=== PATIENT | female | born 1960 | race Caucasian/White ===

== ENCOUNTER → 2017-09-26 08:10 | Outpatient (CLI) | payer OTHER, SELFPAY ==
[2017-09-26 10:27] LABS: AST(SGOT) 23 U/L (15-37); Alanine Aminotransfer ALT/SGPT 34 U/L (13-56); Albumin, Serum 3.6 g/dL (3.2-5.0); Alkaline Phosphatase 80 U/L (45-117); Anion Gap 12 (5-15); BUN 14 mg/dL (7-18); BUN/Creat Ratio 22.5 RATIO (10-20); Calcium,Total 8.9 mg/dL (8.5-10.1); Chloride 105 mmol/L (98-107); Cholesterol 164 mg/dL (200); Creatinine, Serum 0.62 mg/dL (0.55-1.02); EST Glomerular Filtration Rate 104 mL/min (>60); Est Glom Filt Rate - Afr Amer 126 mL/min (>60); Globulin 3.5 g/dL (2.2-4.2); Glucose 141 mg/dL (74-106); High Density Lipoprotein 52 mg/dL; Potassium 3.8 mmol/L (3.5-5.1); Protein, Total 7.1 g/dL (6.4-8.2); Sodium Level 141 mmol/L (136-145); Triglycerides 177 mg/dL; Very Low Density Lipoprotein 35 mg/dL (5-40)
[2017-09-26 10:57] LABS: Microalbumin,Random Urine 16.7 mg/L (NO RANGE EST.); Microalbumin:Creatinine Ratio 21.3 mg/g CRE (<30 mg/g CRE)
== END ==
PROVIDERS: Family Provider Family Medicine; PCP Family Medicine; Visit Provider Family Medicine
DX: E11.9 Type 2 diabetes mellitus without complications (principal); E78.2 Mixed hyperlipidemia
CPT/HCPCS: 36415; 80053; 80061; 82043; 82570; 83036

== ENCOUNTER → 2018-05-07 10:35 | Outpatient (CLI) | payer OTHER, SELFPAY ==
--- NOTE | 2018-05-07 10:37 | BI_ITS ---
MAMMOGRAPHY - BILATERAL SCREENING REASON FOR EXAM: Female, 58 years old. Routine annual screening examination. PERTINENT HISTORY: Non-contributory. TECHNIQUE: Digital bilateral breast haritha (3D mammographic acquisition) in the CC and MLO projections. 2-D mediolateral oblique (MLO) and craniocaudad (CC) views of both breasts were obtained. CAD: Full Field Digital Mammography with Computer Added Detection was performed. COMPARISON: Comparison is made with prior study dated May 05, 2017 and April 16, 2016. FINDINGS: Breast Composition: The breasts are almost entirely fatty. There is a 4.2 mm x 4.3 mm well-defined nodule in the anterior slightly upper lateral portion of the right breast. Correlation with ultrasound is recommended. Stable benign-appearing bilateral axillary lymph nodes. No other significant abnormalities are identified. BI/SCREENING MAMM (CAD), BILAT IMPRESSION: 4.2 mm x 4.3 mm well-defined nodule in the anterior slightly upper lateral portion of the right breast. Correlation with ultrasound is recommended. ASSESSMENT CATEGORY: BIRADS Category 0: Incomplete. Need additional imaging evaluation. A letter regarding these results will be sent to the patient by the facility within 30 days. Approximately 10% of breast cancers are not detected by mammography. A normal mammogram should not delay biopsy of a clinically suspicious abnormality. [id number] Electronically Signed: Destin Marquez MD at 14:37 EDT Tel [phone], Service support ,
== END ==
PROVIDERS: Family Provider Family Medicine; PCP Family Medicine; Visit Provider Family Medicine
DX: Z12.31 Encounter for screening mammogram for malignant neoplasm of breast (principal)
CPT/HCPCS: 77063; 77067

== ENCOUNTER → 2018-05-11 13:56 | Outpatient (CLI) | payer OTHER, SELFPAY ==
--- NOTE | 2018-05-11 13:58 | US_ITS ---
STUDY: ULTRASOUND BREAST - RIGHT REASON FOR EXAM: Female, 58 years old. Abnormal screening mammogram. TECHNIQUE: Axial and longitudinal images of the RIGHT breast were performed with a high resolution ultrasound transducer. COMPARISON: Comparison is made with prior mammogram dated May 07, 2018. FINDINGS: RIGHT Breast: The mammographic abnormality corresponds to a 2 mm x 2 mm x 2 mm cyst at the 9:00 position breast at 1 cm from the nipple. US/Breast Limited Unilateral IMPRESSION: The mammographic abnormality corresponds to a 2 mm x 2 mm x 2 mm cyst. ASSESSMENT CATEGORY: BIRADS Category 2: Benign. A letter regarding these results will be sent to the patient by the facility within 30 days. Electronically Signed: Destin Marquez MD at 14:58 EDT Tel [phone], Service support ,
== END ==
PROVIDERS: Family Provider Family Medicine; PCP Family Medicine; Visit Provider Family Medicine
DX: R92.8 Other abnormal and inconclusive findings on diagnostic imaging of breast (principal)
CPT/HCPCS: 76642

== ENCOUNTER → 2018-06-05 09:40 | Outpatient (CLI) | payer OTHER, SELFPAY ==
--- NOTE | 2018-06-05 | COLBX_PTH ---
PATIENT: GURVINDER MARTINEZ LOC: [facility] U#:[id number] AGE/SX: 65/F ROOM: RE06/05/[address]: Dr. Moody Abrams MD : 1960 BED: DIS: SPEC #: [id number] RECD: 06/05/18 15:34 STATUS: TERRY GHISLAINE #: [id number] REGINA: 06/05/18 00:[address]: Moody Abrams DEPT: SURGICAL PATHOLOGY RECD BY: Lebron Zaldivar ENTERED: 06/08/18 13:35 SP TYPE: COLON BX OTHR DR: Dr. Maximino Aguilera, [facility] Tissues: Transverse colon Procedures: Surgery Specimen Level IV HEADER OPERATION: Colonoscopy with biopsies PRE-OP DIAGNOSIS: Screening / polyp TISSUE SUBMITTED: Transverse colon, rule out adenoma MICROSCOPIC DIAGNOSIS Transverse colon polyp, biopsy: Fragments of tubular adenoma. SJ:james 06/09/18 MICROSCOPIC DESCRIPTION Slides are reviewed. GROSS DESCRIPTION Received in fixative is one container labeled with the patient's name and designated transverse colon. The specimen consists of multiple irregular fragments of light reyes soft tissue that in aggregate measure 0.4 x 0.4 x 0.1 cm. The specimen is totally submitted in one cassette. / SJ:james 06/08/18 TC:1 CPT: 38833
== END ==
PROVIDERS: Family Provider Family Medicine; PCP Family Medicine; Referring Provider Internal Medicine Gastroenterology; Visit Provider Internal Medicine Gastroenterology
DX: Z12.11 Encounter for screening for malignant neoplasm of colon (principal); D12.3 Benign neoplasm of transverse colon
CPT/HCPCS: 88305

== ENCOUNTER → 2019-06-24 09:03 | Outpatient (CLI) | payer OTHER, SELFPAY ==
[2019-06-24 09:46] LABS: Hematocrit 42.4 % (37-47); Hemoglobin 13.8 g/dL (12.0-15.0); Mean Corp Hgb Conc 32.5 g/dL (32-36); Mean Corpuscular Hgb 28.9 pg (27.0-32.0); Mean Corpuscular Volume 88.7 fL (81-99); Mean Platelet Vol. 11.1 fl (6.2-12.0); Platelet Count 203 K/mm3 (150-450); RBC Distribution Width CV 13.1 % (11.6-14.6); RBC Distribution Width SD 42.6 fl (35.1-43.9); Red Blood Count 4.78 M/mm3 (4.2-5.4); White Blood Count 6.8 K/mm3 (4.4-11.0)
[2019-06-24 10:09] LABS: ALB/GLOB Ratio 1.1 RATIO (0.9-2.4); AST(SGOT) 24 U/L (15-37); Alanine Aminotransfer ALT/SGPT 32 U/L (13-56); Albumin, Serum 3.6 g/dL (3.2-5.0); Alkaline Phosphatase 90 U/L (45-117); Anion Gap 6 (5-15); BUN 8 mg/dL (7-18); Calcium,Total 9.1 mg/dL (8.5-10.1); Chloride 107 mmol/L (98-107); Cholesterol 178 mg/dL (200); Creatinine, Serum 0.66 mg/dL (0.55-1.02); EST Glomerular Filtration Rate 96 mL/min (>60); Est Glom Filt Rate - Afr Amer 116 mL/min (>60); Globulin 3.4 g/dL (2.2-4.2); Glucose 150 mg/dL (74-106); High Density Lipoprotein 51 mg/dL; Potassium 4.3 mmol/L (3.5-5.1); Sodium Level 141 mmol/L (136-145); Thyroid Stim Hormone (TSH) 1.44 uIU/mL (0.358-3.74); Triglycerides 157 mg/dL; Very Low Density Lipoprotein 31 mg/dL (5-40)
[2019-06-24 10:10] LABS: Hemoglobin A1c 7.7 % (4.2-6.3)
== END ==
PROVIDERS: Family Provider Student in an Organized Health Care Education/Training Program; PCP Student in an Organized Health Care Education/Training Program; Referring Provider Student in an Organized Health Care Education/Training Program; Visit Provider Student in an Organized Health Care Education/Training Program
DX: E11.65 Type 2 diabetes mellitus with hyperglycemia (principal)
CPT/HCPCS: 36415; 80053; 80061; 83036; 84443; 85027

== ENCOUNTER → 2020-02-15 08:20 | Outpatient (CLI) | payer OTHER, SELFPAY ==
[2020-02-15 12:04] LABS: Hemoglobin 13.7 g/dL (12.0-15.0); Mean Corp Hgb Conc 31.9 g/dL (32-36); Mean Corpuscular Hgb 28.9 pg (27.0-32.0); Mean Corpuscular Volume 90.7 fL (81-99); Mean Platelet Vol. 10.9 fl (6.2-12.0); Platelet Count 205 K/mm3 (150-450); RBC Distribution Width CV 12.8 % (11.6-14.6); RBC Distribution Width SD 42.5 fl (35.1-43.9); Red Blood Count 4.74 M/mm3 (4.2-5.4); White Blood Count 6.6 K/mm3 (4.4-11.0)
[2020-02-15 12:18] LABS: AST(SGOT) 21 U/L (15-37); Alanine Aminotransfer ALT/SGPT 30 U/L (13-56); Albumin, Serum 3.4 g/dL (3.2-5.0); Alkaline Phosphatase 88 U/L (45-117); Anion Gap 6 (5-15); BUN 13 mg/dL (7-18); BUN/Creat Ratio 20.5 RATIO (10-20); Calcium,Total 8.9 mg/dL (8.5-10.1); Chloride 109 mmol/L (98-107); Cholesterol 152 mg/dL (200); Creatinine, Serum 0.63 mg/dL (0.55-1.02); EST Glomerular Filtration Rate 101 mL/min (>60); Est Glom Filt Rate - Afr Amer 123 mL/min (>60); Globulin 3.5 g/dL (2.2-4.2); Glucose 144 mg/dL (74-106); High Density Lipoprotein 47 mg/dL; Potassium 4.1 mmol/L (3.5-5.1); Protein, Total 6.9 g/dL (6.4-8.2); Sodium Level 142 mmol/L (136-145); Triglycerides 185 mg/dL; Very Low Density Lipoprotein 37 mg/dL (5-40)
[2020-02-15 12:24] LABS: Hemoglobin A1c 7.3 % (3.8-5.6); Microalbumin,Random Urine 5.7 mg/L (NO RANGE EST.)
== END ==
PROVIDERS: PCP Student in an Organized Health Care Education/Training Program; Referring Provider Student in an Organized Health Care Education/Training Program; Visit Provider Student in an Organized Health Care Education/Training Program
DX: E11.65 Type 2 diabetes mellitus with hyperglycemia (principal); E78.2 Mixed hyperlipidemia
CPT/HCPCS: 36415; 80053; 80061; 82043; 83036; 85027

== ENCOUNTER → 2020-07-05 09:51 | Outpatient (CLI) | payer OTHER, SELFPAY ==
--- NOTE | 2020-07-05 09:53 | BI_ITS ---
MAMMOGRAPHY - BILATERAL SCREENING REASON FOR EXAM: Female, 60 years old. Routine annual screening examination. PERTINENT HISTORY: Non-contributory. TECHNIQUE: Digital bilateral breast kuldip (3D mammographic acquisition) in the CC and MLO projections. 2-D mediolateral oblique (MLO) and craniocaudad (CC) views of both breasts were obtained. CAD: Full Field Digital Mammography with Computer Added Detection was performed. COMPARISON: Comparison is made with prior study dated 05/07/2018 and 05/05/2017 FINDINGS: Breast Composition: The breasts are almost entirely fatty. There are no dominant masses or suspicious calcifications. The previously seen nodule in the anterior slightly lateral superior aspect of the right breast has increased in size. It presently measures 7.8 mm x 7 mm. A repeat sonogram is recommended. No other significant abnormalities are identified. BI/SCREEN MAMM (CAD) W/KULDIP BILAT IMPRESSION: Slight increase in size of the previously seen nodule in the lateral superior aspect of the right breast as described. Correlation with ultrasound is recommended. ASSESSMENT CATEGORY: BIRADS Category 0: Incomplete. Need additional imaging evaluation. A letter regarding these results will be sent to the patient by the facility within 30 days. Approximately 10% of breast cancers are not detected by mammography. A normal mammogram should not delay biopsy of a clinically suspicious abnormality. [id number] Electronically Signed: Destin Marquez, at 10:43 EST , Service support ,
== END ==
PROVIDERS: PCP Student in an Organized Health Care Education/Training Program; Referring Provider Student in an Organized Health Care Education/Training Program; Visit Provider Student in an Organized Health Care Education/Training Program
DX: Z12.31 Encounter for screening mammogram for malignant neoplasm of breast (principal)
CPT/HCPCS: 77063; 77067

== ENCOUNTER → 2020-07-11 09:58 | Outpatient (CLI) | payer OTHER, SELFPAY ==
--- NOTE | 2020-07-11 10:00 | US_ITS ---
STUDY: ULTRASOUND BREAST - RIGHT REASON FOR EXAM: Female, 60 years old. TECHNIQUE: Axial and longitudinal images of the RIGHT breast were performed with a high resolution ultrasound transducer. # OF IMAGES: 50 COMPARISON: Previous mammogram obtained on 07/05/2020, previous breast ultrasound obtained on 05/11/2018 FINDINGS: RIGHT Breast: There is a lesion in the superior lateral quadrant. The lesion measures 0.44 cm in size. This has doubled in size when compared with the previous ultrasound. Clock notation: 9: o''clock position. Distance from nipple: 3 cm. Posterior Enhancement: No Posterior Shadowing: Yes Margins: Indistinct and irregular Echogenicity: Hypoechoic with some internal shadowing US/Breast Limited Unilateral IMPRESSION: A hypoechoic irregular nodule is noted in the superior lateral aspect of the right breast. This is viewed with concern and is suspicious for malignancy an ultrasound directed breast biopsy is recommended for further evaluation. ASSESSMENT CATEGORY: BIRADS Category 4: Suspicious - Biopsy Should Be Considered. A letter regarding these results will be sent to the patient by the facility within 30 days. Electronically Signed: Mingo Harry, at 16:55 EST Tel , Service support ,
== END ==
PROVIDERS: PCP Student in an Organized Health Care Education/Training Program; Referring Provider Student in an Organized Health Care Education/Training Program; Visit Provider Student in an Organized Health Care Education/Training Program
DX: R92.8 Other abnormal and inconclusive findings on diagnostic imaging of breast (principal)
CPT/HCPCS: 76642

== ENCOUNTER → 2020-07-19 12:05 | Outpatient (CLI) | payer OTHER, SELFPAY ==
--- NOTE | 2020-07-19 | IMM_PTH ---
PATIENT: GURVINDER MARTINEZ LOC: [facility] U#:[id number] AGE/SX: 65/F ROOM: RE07/19/[address]: Dr. Eugenio Puckett MD : 1960 BED: DIS: SPEC #: [id number] RECD: 07/20/20 13:16 STATUS: TERRY REQ #: [id number] REGINA: 07/19/20 00:[address]: Eugenio Puckett DEPT: IMMUNOHISTOCHEMISTRY RECD BY: Sheila Bhatia ENTERED: 07/20/20 13:17 SP TYPE: IMMUNO OTHR DR: Dr. Delvin Sanchez DO Tissues: Right breast, NOS Procedures: CALPONIN-1 (add) CK5-6 (add) CK8 (add) E-CAD (add) HER2 GABRIELA (add) KI-67 (add) P53 (add) SC (add) P40 (add) ER (initial) PHYSICIAN & INSTITUTION [place] [address] SPECIMEN INFORMATION: Tissue Source: Right breast Clinical Info: Abnormal right mammogram Specimen Number: [id number] CPT code: 32536, 46176 x6, 21344 x3 METHODOLOGY: Deparaffinized sections of prefer/formalin-fixed tissue or PAP/DQ stained slides are incubated with monoclonal/polyclonal antibodies/oligonucleotide probes. Localization is made via biotin free immunoperoxidase method. Appropriate controls are performed and reacted as expected. Results on target cell population are indicated in the following table: RESULTS: ANTIBODY / CLONE RESULT E-Cad (ECH-6) positive CK8 (84fgdoY57) positive Calponin-1 (XE312K) negative CK5-6 (D5 & 1684) negative P40 (BC28) negative P53 (DO-7) negative Ki-67 (30-9) positive, low MORPHOMETRIC ANALYSIS ER (clone 6F11) >95%, strong intensity SC (clone 16/1E2) >95%, strong intensity Her-2Neu (clone CB11) 0 The prognostic test for HER2 is performed on formalin-fixed paraffin embedded tissue. A 3+ (positive) staining pattern is defined as intense, homogeneous, complete, circumferential membranous staining in >10% of contiguous tumor cells. A similar weak (2+) staining pattern is interpreted as equivocal. SRIAKNTH follow-up testing is recommended for all equivocal cases. Positivity/negativity for ER/SC is reported if > or < 1% of the tumor cells are immuno- reactive, respectively. The ASCO/CAP criteria is used for scoring. Reference: Journal of Clinical Oncology, 2013; 31:1335-8322 & 2010; 16:2070-1762. Duration of fixation: 7.5 Hrs; Sample Adequate: Yes. These assays have not been validated on decalcified tissues. Results should be interpreted with caution given the likelihood of false negativity on decalcified specimens. These tests were developed and their performance characteristics determined by [facility]. They may not have been cleared or approved by the U.S. Food and Drug Administration. The FDA has determined that such clearance or approval is not necessary. The above immunohistochemical/dualISH markers are ordered and reviewed by the Pathologist. INTERPRETATION: Right breast, ultrasound-guided biopsy: Invasive ductal carcinoma, nuclear grade 1. Positive for estrogen receptors (favorable prognostic indicator). Positive for progesterone receptors (favorable prognostic indicator). Negative for overexpression of KTA2caa. SJ:james 07/21/20
--- NOTE | 2020-07-19 09:10 | BRBX_PTH ---
PATIENT: GURVINDER MARTINEZ LOC: [facility] U#:[id number] AGE/SX: 65/F ROOM: RE07/19/[address]: Dr. Eugenio Puckett MD : 1960 BED: DIS: SPEC #: [id number] RECD: 07/19/20 11:09 STATUS: TERRY GHISLAINE #: [id number] REGINA: 07/19/20 09:[address]: Eugenio Puckett DEPT: SURGICAL PATHOLOGY RECD BY: Emily Roberts ENTERED: 07/19/20 12:44 SP TYPE: BREAST BX OTHR DR: Dr. Delvin Sanchez, DO Tissues: Breast, NOS Procedures: Surgery Specimen Level IV HEADER OPERATION: Ultrasound-guided right breast biopsy PRE-OP DIAGNOSIS: Abnormal right mammogram TISSUE SUBMITTED: Right breast tissue FIXATION TIME: 7.5 hours MICROSCOPIC DIAGNOSIS Right breast, ultrasound-guided core biopsy: Invasive ductal carcinoma, nuclear grade 1 (0.5 cm in greatest length). See comment. ADELINE:james 07/20/20 COMMENT Immunohistochemistry ([id number]) supports the above diagnosis. ER/MA/Dbl5fvi studies are being performed on sections of tumor and the results from this study will be reported separately ([id number]). Case has been reviewed in consultation with Dr. Jimenez who concurs with the above diagnosis. IDC:AM MICROSCOPIC DESCRIPTION Slides are reviewed. GROSS DESCRIPTION Received in fixative is one container labeled with the patient's name and designated right breast tissue. The specimen consists of three cores of light reyes-yellow soft tissue that in aggregate measure 1.7 x 0.5 x 0.2 cm. The specimen is totally submitted in one cassette. / AM:james 07/19/20 TC:0 CPT: 35480
[2020-07-19 09:38] VITALS: BMI 32.7
== END ==
PROVIDERS: PCP Student in an Organized Health Care Education/Training Program; Referring Provider Surgery; Visit Provider Surgery
DX: R92.8 Other abnormal and inconclusive findings on diagnostic imaging of breast (principal)
CPT/HCPCS: 88305; 88341; 88342

== ENCOUNTER 2020-07-28 10:26 | Day surgery (SDC) | payer OTHER, SELFPAY ==
[2020-07-28] VITALS (7 sets, daily range): BP systolic 113–152; BP diastolic 58–92; PULSE 61–85; RESP 16–18; TEMP 36.2–36.6; O2SAT 95–100; BMI 31.8
--- NOTE | 2020-07-28 | LYMN_PTH ---
PATIENT: GURVINDER MARTINEZ LOC: [facility] U#:[id number] AGE/SX: 60/F ROOM: RE07/28/[address]: Dr. Eugenio Puckett MD : 1960 BED: DIS: 07/28/2020 SPEC #: [id number] RECD: 07/28/20 14:36 STATUS: TERRY REQ #: [id number] REGINA: 07/28/20 00:[address]: Eugenio Puckett DEPT: SURGICAL PATHOLOGY RECD BY: Sheila Bhatia ENTERED: 07/28/20 15:24 SP TYPE: LYMPH NODE OTHR DR: Dr. Delvin Sanchez, DO Tissues: A - LYMPH NODE BIOPSY B - Right breast, NOS Procedures: Frozen Section (charge) Frozen Section Add'l ([facility]) Surgery Specimen Level V HEADER OPERATION: Stereotactic wire localization lumpectomy with sentinel lymph node biopsy PRE-OP DIAGNOSIS: Malignant neoplasm of upper outer quadrant right breast, ER positive TISSUE SUBMITTED: A - [place] lymph node, FS at 1431, B - Right breast tissue, suture hernandez lateral, long and short superior FROZEN SECTION DIAGNOSIS A. [place] lymph nodes, biopsy: Three out of three lymph nodes, negative for metastatic carcinoma. SJ:james 07/28/20 MICROSCOPIC DIAGNOSIS A. Right axillary sentinel lymph nodes, biopsy: Three out of three lymph nodes, negative for carcinoma. See comment. B. Right breast, lumpectomy: Invasive ductal carcinoma. See cancer checklist below. AM:james 08/02/20 COMMENT A. Immunohistochemistry ([id number]) supports the above diagnosis. INVASIVE BREAST CANCER SUMMARY (specimen B) Procedure: Excision with wire guidance Specimen: Type: Partial breast Size: 7 x 6 x 2 cm Laterality: Right Invasive Tumor: Size: 6 x 6 x 6 mm Focality: Single focus Histologic type: Invasive ductal carcinoma. Histologic grade (Yusuf grade): Glandular/tubular differentiation score: 3 Nuclear pleomorphism score: 2 Mitotic count score: 1 Overall grade: 2 (score of 6) Lymphvascular invasion: Not identified Ductal Carcinoma In Situ: Not identified Lobular Carcinoma In Situ: Not identified Tumor extension: Skin: Not applicable Nipple: Not applicable Skeletal muscle: Not present Invasive Carcinoma Margin: Distance from closest margin: 0.5 cm from closest (superior) margin In Situ Carcinoma Margin: Distance from closest margin: 0.5 cm from closest (superior) margin Lymph Nodes: Number of sentinel lymph nodes examined: 3 Total number of lymph nodes examined: 3 No evidence of macrometastases, micrometastases or isolated tumor cells. See specimen A Microcalcifications: Not present Treatment Effect: Unknown Additional Pathologic Findings: Consistent with previous biopsy. Ancillary Studies: Previously performed on same tumor ([id number] / [id number]) ER: positive (>95%, strong intensity) FL: positive (>95%, strong intensity) Oiu5ohr: negative (0) Clinical History: Abnormal mammogram PATHOLOGIC STAGE: T1b N0 Mx The above summary is in compliance with [employer] (CAP) Cancer Protocol Checklist and [place] Joint Committee on Cancer (AJCC) Staging Manual, 8th Ed. Case has been reviewed in consultation with Dr. Moser who concurs with the above diagnosis. IDC:SJ MICROSCOPIC DESCRIPTION Slides are reviewed. GROSS DESCRIPTION A - Received fresh for frozen section diagnosis labeled with the patient's name is a specimen designated sentinel lymph node. The specimen consists of a piece of adipose tissue containing nodules consistent with lymph nodes measuring 4.5 x 3 x 1 cm. Three lymph nodes are identified, the largest measuring 3?cm in greatest dimension. The lymph nodes are submitted in entirety for frozen section diagnosis as follows: 1 - one lymph node, 2 & 3 - one bisected lymph node, 4 & 5 - one bisected lymph node. / ADELINE:james 07/28/20 B - Received fresh for OR consultation labeled with the patient's name is a specimen designated right breast. The specimen consists of an oriented fragment of reyes-yellow fibrofatty tissue measuring 7 x 6 x 2 cm and contains a guidewire. The specimen weighs 36.5 gm. The specimen is differentially inked as follows: anterior - yellow, posterior - black, superior - blue, inferior - green, medial - red and lateral - orange. Serial sections reveal a blood filled biopsy cavity measuring 2 x 1.5 x 1 cm and located 0.5 cm from the closest (superior) margin of excision. The proximity of the biopsy cavity to the closest margin is conveyed to the surgeon intraoperatively. No distinct mass lesions are identified. Principal Software Engineer sections are submitted in 12 cassettes as follows: 1 & 2 - inked perpendicular margins, 3-7 - biopsy cavity, 8 & 9 - Principal Software Engineer sections of uninvolved breast parenchyma adjacent to biopsy cavity, 1012?- Principal Software Engineer sections of uninvolved breast parenchyma away from the lesion. / AM:james 07/31/20 TC:0 CPT: 60590 x2, 86463, 11821 x4 ADDENDUM ADDENDUM ADDENDUM ADDENDUM ADDENDUM ADDENDUM ADDENDUM ADDENDUM 09/04/2020 10:16 ADDENDUM 09/04/2020 10:16 ADDENDUM 09/04/2020 10:16 ADDENDUM 09/04/2020 10:16 ADDENDUM 09/04/2020 10:16 An order for Oncotype testing was received from Dr. Fernandes. This necessitated case review, block and slide selection by pathologist at [facility]. Breast Cancer Recurrence Score = 12 Results of the complete Oncotype testing (Rounds report) are viewable in EMR under: Reports - Pathology - Lab Pathology Report, Scanned.
--- NOTE | 2020-07-28 | IMM_PTH ---
PATIENT: GURVINDER MARTINEZ LOC: [facility] [place] U#:[id number] AGE/SX: 60/F ROOM: RE07/28/[address]: Dr. Eugenio Puckett MD : 1960 BED: DIS: 07/28/2020 SPEC #: [id number] RECD: 08/02/20 13:15 STATUS: TERRY RENirav #: [id number] REGINA: 07/28/20 00:[address]: Eugenio Puckett DEPT: IMMUNOHISTOCHEMISTRY RECD BY: Sheila Bhatia ENTERED: 08/02/20 13:17 SP TYPE: IMMUNO OTHR DR: Dr. Delvin Sanchez, DO Tissues: A - Axillary lymph node, NOS Procedures: CK7 (add) Pankeratin (add) CK7 (initial) PHYSICIAN & INSTITUTION [place] [address] SPECIMEN INFORMATION: Tissue Source: A - [place] lymph nodes, biopsy Clinical Info: Malignant neoplasm of upper outer quadrant right breast, ER positive Specimen Number: [id number] A2, A3, A5 CPT code: 63967, 74290 x5 METHODOLOGY: Deparaffinized sections of prefer/formalin-fixed tissue or PAP/DQ stained slides are incubated with monoclonal/polyclonal antibodies/oligonucleotide probes. Localization is made via biotin free immunoperoxidase method. Appropriate controls are performed and reacted as expected. Results on target cell population are indicated in the following table: RESULTS: ANTIBODY / CLONE RESULT Block A2 CK7 (OV-TL12/30) negative AE1-3 (AE1/AE3/PCK26) negative Block A3 CK7 (OV-TL12/30) negative AE1-3 (AE1/AE3/PCK26) negative Block A5 CK7 (OV-TL12/30) negative AE1-3 (AE1/AE3/PCK26) negative These tests were developed and their performance characteristics determined by [facility]. They may not have been cleared or approved by the U.S. Food and Drug Administration. The FDA has determined that such clearance or approval is not necessary. The above immunohistochemical/dualISH markers are ordered and reviewed by the Pathologist. INTERPRETATION: A. [place] lymph nodes, biopsy: Three out of three lymph nodes negative for carcinoma. AM:james 08/03/20
--- NOTE | 2020-07-28 01:15 | HP_ITS ---
Intake Intake Visit Reasons: Review PATH Chief Complaint: right breast mass Freight Representative Required: No Is patient in pain?: No Allergies codeine Adverse Reaction (Mild, Verified 07/24/20 10:02) Rash Medications aspirin 81 mg tablet,delayed release 81 mg PO DAILY 07/19/20 [History Confirmed 07/24/20] betamethasone dipropionate 0.05 % topical ointment g TOPICAL 07/19/20 [History Confirmed 07/24/20] dapagliflozin 10 mg tablet 10 mg PO DAILY 07/19/20 [History Confirmed 07/24/20] exenatide microspheres 2 mg/0.85 mL subcutaneous auto-injector 2 mg SC Q7D 07/19/20 [History Confirmed 07/24/20] [id number] tablet tab PO 07/19/20 [History Confirmed 07/24/20] losartan 100 mg tablet 100 mg PO DAILY 07/19/20 [History Confirmed 07/24/20] pioglitazone 15 mg tablet tab PO 07/19/20 [History Confirmed 07/24/20] pyridoxine (vitamin B6) 25 mg tablet 25 mg PO DAILY 07/19/20 [History Confirmed 07/24/20] simvastatin 40 mg tablet tab PO 07/19/20 [History Confirmed 07/24/20] PFSH Medical History Breast cancer (Acute) Diabetes (Acute) High cholesterol (Acute) Surgical History S/P appendectomy (Acute) S/P breast biopsy, right (Acute) S/P foot surgery (Acute) Family History Father Heart disease Diabetes Mother Diabetes Sister Kidney disease Social History (Updated 07/24/20 @ 10:[address] Eugenio Puckett MD) Smoking Status: Never smoker alcohol intake: never HPI HPI HPI: GURVINDER MARTINEZ, is a 60 F who presents to the office today for HPI HPI Surgical H&P: Yes HPI: GURVINDER MARTINEZ, is a 60 F who presents to the office today for Invasive ductal carcinoma of the right breast. The patient had a core biopsy in the office last week which showed invasive ductal carcinoma ER/IL positive. The patient has had no issues since her biopsy. ROS General General: No weight change or fatigue Cardio Cardiovascular: No murmur, pacemaker, heart disease, atrial fibrillation, high blood pressure, heart attack, heart stent, palpitations, shortness of breat with exertion or chest pain Psych Psychiatric: No depression or anxiety Resp Respiratory: No shortness of breath, No sleep apnea, No cough, No COPD, No asthma, No emphysema, No wheezing Gastro Gastrointestinal: No abdominal pain, No nausea or vomiting, No diarrhea, No constipation, No blood in stool, No acid reflux, No hemorrhoids, No ulcers, No gallbladder problem, No black,tarry stools Wil Hematologic: No blood thinners Exam Const General: cooperative Orientation: alert, oriented x3 Resp Effort & Inspection: normal respiratory effort Auscultation: clear to auscultation bilaterally Cardio Rate: regular rate Rhythm: regular rhythm Heart Sounds: no murmurs GI Inspection: non-distended Palpation: soft, nontender Assessment & Plan Problems 1. Malignant neoplasm of upper-outer quadrant of right breast in female, estrogen receptor positive C50.411; Z17.0 Plan The patient has infective ductal carcinoma of the right breast. I discussed surgical treatment with her. I discussed partial mastectomy with sentinel lymph node biopsy and wire localization with radiotracer and blue dye injection. I discussed the procedure in detail as well as the risks of bleeding, infection, injury to nerve or other organ, hematoma or seroma formation. The patient understands the risks and is when to proceed. I also discussed postoperative treatment with her including radiation therapy and possible chemotherapy with hormonal therapy. Patient understands all the risks and is willing to proceed with surgery. Eugenio Puckett MD Pager: [facility] [address] [place] [address], [address] [place] [address] Office: Coding Level of Care Code Off vis,est,level 3 Diagnoses Malignant neoplasm of upper-outer quadrant of right breast in female, estrogen receptor positive C50.411; Z17.0 ??Breast location: upper outer quadrant of breast ??Estrogen receptor status: positive ??Patient sex: female I have seen and reexamined the patient and there are no changes.
--- NOTE | 2020-07-28 11:00 | NM_ITS ---
PROCEDURE: NUCLEAR MEDICINE Injection Thompson Node - RIGHT breast(s). REASON FOR EXAM: Female, 60 years old. Right breast cancer. TECHNIQUE: Thompson node localization using radionuclide methods of the RIGHT breast(s) was performed following subcutaneous administration of 1.1 mCi of of sulfur colloid Tc-99m. FINDINGS: 1.1 mCi of technetium labeled sulfur colloid was injected subcutaneously in 4 equal aliquots in the periareolar region. NM/Lymph Node Injection Only IMPRESSION: Subcutaneous injection of 1.1 mCi of technetium labeled sulfur colloid in the periareolar region. Electronically Signed: Destin Marquez, at 11:23 EST , Service support ,
[2020-07-28] MEDS: Lactated Ringers 1,000 ML 100 ML IV ×3 (11:01→17:04)
[2020-07-28 11:06] LABS: Bedside Glucose 132 mg/dL (70-110)
--- NOTE | 2020-07-28 12:00 | BI_ITS ---
SURGICAL BREAST SPECIMEN RADIOGRAPH CLINICAL: Document presence of tissue clip marker in biopsy specimen. FINDINGS: Specimen shows presence of tissue clip marker. Electronically Signed: Destin Marquez, at 15:05 EST , Service support , BI/Breast Biopsy Specimen
[2020-07-28] MEDS: Cefazolin 2 GM in 0.9% Normal Saline 100 ML IV (13:43)
[2020-07-28] MEDS: Isosulfan Blue 1% 5 ML Vial (14:00)
[2020-07-28] MEDS: 0.9% Normal Saline (Pres. free 10 ML Vial (14:00)
[2020-07-28] MEDS: Bupiv/Epi 0.25% 30 ML Vial (14:30)
--- NOTE | 2020-07-28 15:45 | OP.PCM_ITS ---
Problem List (1) Breast cancer, right Status: Acute Qualifiers: Breast location: upper outer quadrant of breast Estrogen receptor status: positive Patient sex: female Qualified Code(s): C50.411 - Malignant neoplasm of upper-outer quadrant of right female breast; Z17.0 - Estrogen receptor positive status [ER+] Report of Operation Date of Procedure: 07/28/20 Pre-Operative Diagnosis: Right breast cancer Post-Operative Diagnosis: Same Surgery/Procedure Performed:: 1. Stereotactic guided wire localization. 2. Right sentinel lymph node biopsy with injection of blue dye. 3. Right partial mastectomy Specimen's removed: 1. [place] lymph node biopsy. 2. Right breast specimen Description of Procedure: Patient was brought to the stereotactic room and placed in the stereotactic table. Mammographic images were obtained. The clip was localized. Stereotactic images were obtained and the clip was localized with computer and the coordinates were placed into the computer. The skin was prepped and draped in usual sterile fashion and anesthetized with local anesthetic. The guidewire was placed into the breast and the wire was deployed and the needle was removed. The wire was clipped and a mammogram was obtained. Patient was then taken the operating room and general anesthesia was induced. 5 cc of Lymphazurin mixed with 5 cc of saline were injected under the right nipple and the breast was massaged for 5 minutes. The right axilla and breast were prepped and draped in usual sterile fashion. An incision was marked in the axilla numbed with anesthesia. A skin incision was made with a scalpel and deepened using electrocautery to the axillary fascia which was then incised. The axilla was dissected and a blue lymph node was identified and dissected free. The lymph node was checked and a 10-second count was over thousand. Th ere were no further blue or radio active lymph nodes in the right axilla. The right axilla was inspected and there was good hemostasis. It was packed with a wet gauze. Next the right breast skin incision was marked and local anesthetic was injected. A skin incision was made with a scalpel and flaps were raised on either side using electrocautery. The wire was delivered into the incision. Using electrocautery the mass was dissected free and marked with marking sutures and sent for mammogram. Mammogram of the breast specimen showed the entire wire with clip. The axillary lymph nodes were negative on frozen section. Next the breast cavity was irrigated and suctioned dry and hemostasis was obtained using electrocautery. The axillary fascia was closed with interrupted 3-0 Vicryl sutures and a running 4-0 Monocryl suture. The breast cavity was closed with interrupted 3-0 Vicryl sutures as well as a running 4-0 Monocryl suture. Glue was applied to both incisions and the patient was then awoken and taken to PACU in stable condition. - Admit VTE Documentation VTE Mechan Device Prophylaxis: SCD's
--- NOTE | 2020-07-28 15:58 | PCM.DC.BS ---
Discharge Diet: No Restrictions Discharge Activity: May Not Drive - for 2-3 days or while taking narcotic pain meds. May shower in (days): 1 Lifting Restrictions: 10 pounds for 1 week. Call your doctor if your incision/area has: Continuous Slow Oozing, Sudden Increased Bleeding, Increased Pain/ Swelling, Increased Redness, Foul Smelling Discharge, Swelling at the incision site Call your doctor if you observe: Fever of 101 or Higher Suture Line Care: Avoid Pulling/Pushing, Avoid Pinching/Bending Cleanse incision/area with: Soap & Water Additional Dressing/Incision Instructions:: Remove bulky dressing tomorrow. Allergies/Adverse Reactions: Allergies codeine Adverse Reaction (Mild, Verified 07/28/20 10:41) Nausea Medications to take at Discharge aspirin 81 mg tablet,delayed release 81 mg PO DAILY 07/19/20 betamethasone dipropionate 0.05 % topical ointment 1 dose TOPICAL PRN PRN 07/19/20 dapagliflozin 10 mg tablet 10 mg PO DAILY 07/19/20 exenatide microspheres 2 mg/0.85 mL subcutaneous auto-injector 2 mg SC Q7D 07/19/20 losartan 100 mg tablet 100 mg PO DAILY 07/19/20 pioglitazone 15 mg tablet 15 tab PO DAILY 07/19/20 pyridoxine (vitamin B6) 25 mg tablet 25 mg PO DAILY 07/19/20 simvastatin 40 mg tablet 40 tab PO QHS 07/19/20 Ascorbic Acid [Vitamin C] 500 mg PO DAILY 07/25/20 Cyanocobalamin [Vitamin B12] 1,000 mcg PO DAILY@0800 07/25/20 Metformin HCl [Metformin HCl ER] 1,000 mg PO 1700 07/25/20 Mv-Min/Iron/Folic/Calcium/Vitk [Women's Daily Formula Tablet] 1 ea PO DAILY 07/25/20 Oxycodone HCl/Acetaminophen [Percocet 5-325 mg Tablet] 1 - 2 tab PO Q6H PRN PRN 5 Days #20 tablet 07/28/20 The following prescriptions were given: Oxycodone HCl/Acetaminophen [Percocet 5-325 mg Tablet] 1 - 2 tab PO Q6H PRN PRN 5 Days #20 tablet PRN Reason: Pain Score 4-10/10 Transmission Status: Sent to [facility] Primary Care Physician: Delvin Sanchez DO [Primary Care Provider] - Please Follow Up With: Eugenio Puckett MD When: Please call to schedule 2 week follow up appointment. [phone]
== END 2020-07-28 17:45 | disposition home or self-care (01) ==
LOC: SDC 10:26 → AC 10:27
PROVIDERS: PCP Student in an Organized Health Care Education/Training Program; Referring Provider Surgery; Visit Provider Surgery
PROC: (CPT 19301; principal; 2020-07-28 13:15)
DX: C50.411 Malignant neoplasm of upper-outer quadrant of right female breast (principal); Z17.0 Estrogen receptor positive status [ER+]; Z20.828 Contact with and (suspected) exposure to other viral communicable diseases; E11.9 Type 2 diabetes mellitus without complications; E78.00 Pure hypercholesterolemia, unspecified; Z78.0 Asymptomatic menopausal state; Z79.82 Long term (current) use of aspirin; Z79.899 Other long term (current) drug therapy
CPT/HCPCS: 00400; 19283; 19301; 38525; 38792; 19281; 76098; 82962; 87426; 88305; 88307; 88331; 88332; 88341; 88342; A9541; C9803; J7120; J2405; J3490; Q9968

== ENCOUNTER → 2020-08-23 08:56 | Outpatient (CLI) | payer OTHER, SELFPAY ==
[2020-08-17 09:12] VITALS: BMI 32.5
--- NOTE | 2020-08-23 09:04 | BD_ITS ---
STUDY: DUAL ENERGY X-RAY ABSORPTIOMETRY / DXA REASON FOR EXAM: Female, 60 years old. 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 COMPARISON: None. FINDINGS: Lumbar Spine (L1-L4): g/cm2 (1.323) / T-score (1.2) / Z-score (2.6) Findings are suggestive of normal bone density with a low fracture risk. Left Femur Total: g/cm2 (0.787) / T-score (-1.8) / Z-score (-0.7) Left Femoral Neck: g/cm2 (0.828) / T-score (-1.5) / Z-score (-0.2) Right Femur Total: g/cm2 (1.130) / T-score (1.0) / Z-score (2.0) Right Femoral Neck: g/cm2 (1.058) / T-score (0.1) / Z-score (1.5) BD/Dexa Bone Density Study IMPRESSION: The patient is considered osteopenic as outlined below according to World Bub[employer] Organization (WHO) criteria with a moderate fracture risk. Reference Information: The T-score is the number of standard deviations above or below the standard which is normal for young adults at their peak bone mineral density. The World Health Organization (WHO) interprets the T-scores as follows: Above -1 Normal bone density Between -1 and -2.5 Osteopenia Equal to / or below -2.5 Osteoporosis As a practical clinical guideline, osteopenia may be graded as follows: Mild -1 through -1.5 Moderate -1.6 through -2.0 Severe -2.1 through -2.4 The Z-score is the number of standard deviations above or below age-matched controls. A Z-score of less than -1.5 would be considered abnormal. References: 1. NIH Osteoporosis and Related Bone Diseases www osteo.org 2. International Society for Clinical Densitometry www iscd.org 3. National Osteoporosis Foundation www nof.org Electronically Signed: Destin Marquez, at 8:25 EST , Service support ,
--- NOTE | 2020-08-23 09:22 | RAD_ITS ---
STUDY: X-RAY CHEST REASON FOR EXAM: Female, 60 years old. Breast cancer TECHNIQUE: PA and lateral views of the chest. COMPARISON: None. FINDINGS: Status post right axillary lymph node dissection. There is hyperinflation of the lungs consistent with chronic obstructive lung disease (COPD). There is no demonstrated pleural abnormality. Normal size heart. Normal mediastinum and yocasta. Normal visualized pulmonary arteries. Normal visualized aortic arch and descending thoracic aorta. Normal visualized thoracic spine. Normal visualized ribs, clavicles, and shoulders. There is no demonstrated abnormality of the visualized soft tissue structures of the upper abdomen. RAD/Chest PA and Lateral IMPRESSION: Emphysema without pneumonia or atelectasis. Electronically Signed: Rodri Wu MD at 16:59 EST Tel , Service support ,
== END ==
PROVIDERS: PCP Student in an Organized Health Care Education/Training Program; Referring Provider Internal Medicine Medical Oncology; Visit Provider Internal Medicine Medical Oncology
DX: C50.911 Malignant neoplasm of unspecified site of right female breast (principal); Z13.820 Encounter for screening for osteoporosis
CPT/HCPCS: 71046; 77080

== ENCOUNTER → 2020-11-15 09:55 | Outpatient (CLI) | payer OTHER, SELFPAY ==
[2020-08-31 10:03] VITALS: BMI 32.5
[2020-10-19 15:05] VITALS: BMI 32.8
[2020-11-15 12:11] LABS: Hematocrit 44.1 % (37-47); Hemoglobin 14.3 g/dL (12.0-15.0); Mean Corp Hgb Conc 32.4 g/dL (32-36); Mean Corpuscular Hgb 29.2 pg (27.0-32.0); Mean Platelet Vol. 10.8 fl (6.2-12.0); Platelet Count 216 K/mm3 (150-450); RBC Distribution Width CV 12.7 % (11.6-14.6); RBC Distribution Width SD 41.9 fl (35.1-43.9); White Blood Count 5.6 K/mm3 (4.4-11.0)
[2020-11-15 12:31] LABS: AST(SGOT) 20 U/L (15-37); Alanine Aminotransfer ALT/SGPT 26 U/L (13-56); Albumin, Serum 3.4 g/dL (3.2-5.0); Alkaline Phosphatase 80 U/L (45-117); Anion Gap 10 (5-15); BUN 14 mg/dL (7-18); BUN/Creat Ratio 22.5 RATIO (10-20); Chloride 104 mmol/L (98-107); Cholesterol 159 mg/dL (200); Creatinine, Serum 0.62 mg/dL (0.55-1.02); EST Glomerular Filtration Rate 103 mL/min (>60); Est Glom Filt Rate - Afr Amer 125 mL/min (>60); Globulin 3.5 g/dL (2.2-4.2); Glucose 138 mg/dL (74-106); High Density Lipoprotein 49 mg/dL; Potassium 3.8 mmol/L (3.5-5.1); Protein, Total 6.9 g/dL (6.4-8.2); Sodium Level 142 mmol/L (136-145); Thyroid Stim Hormone (TSH) 1.26 uIU/mL (0.358-3.74); Triglycerides 200 mg/dL; Very Low Density Lipoprotein 40 mg/dL (5-40)
[2020-11-15 12:33] LABS: Hemoglobin A1c 6.4 % (3.8-5.6)
[2020-11-15 13:01] LABS: Hepatitis C Antibody Non-Reactive (Nonreactive)
== END ==
PROVIDERS: PCP Student in an Organized Health Care Education/Training Program; Referring Provider Student in an Organized Health Care Education/Training Program; Visit Provider Student in an Organized Health Care Education/Training Program
DX: E11.9 Type 2 diabetes mellitus without complications (principal); Z11.59 Encounter for screening for other viral diseases
CPT/HCPCS: 36415; 80053; 80061; 83036; 84443; 85027; 86803

== ENCOUNTER → 2021-05-07 09:06 | Outpatient (CLI) | payer OTHER, SELFPAY ==
[2020-08-31 10:03] VITALS: BMI 32.5
[2021-05-07 10:00] LABS: Hematocrit 42.3 % (37-47); Hemoglobin 13.7 g/dL (12.0-15.0); Mean Corp Hgb Conc 32.4 g/dL (32-36); Mean Corpuscular Hgb 29.5 pg (27.0-32.0); Mean Platelet Vol. 10.8 fl (6.2-12.0); Platelet Count 198 K/mm3 (150-450); RBC Distribution Width CV 12.2 % (11.6-14.6); RBC Distribution Width SD 40.6 fl (35.1-43.9); Red Blood Count 4.65 M/mm3 (4.2-5.4)
[2021-05-07 10:32] LABS: ALB/GLOB Ratio 0.8 RATIO (0.9-2.4); AST(SGOT) 28 U/L (15-37); Alanine Aminotransfer ALT/SGPT 28 U/L (13-56); Albumin, Serum 3.1 g/dL (3.2-5.0); Alkaline Phosphatase 63 U/L (45-117); Anion Gap 8 (5-15); BUN 14 mg/dL (7-18); BUN/Creat Ratio 25.1 RATIO (10-20); Chloride 105 mmol/L (98-107); Cholesterol 163 mg/dL (200); Creatinine, Serum 0.56 mg/dL (0.55-1.02); EST Glomerular Filtration Rate 117 mL/min (>60); Est Glom Filt Rate - Afr Amer 141 mL/min (>60); Globulin 3.8 g/dL (2.2-4.2); Glucose 148 mg/dL (74-106); High Density Lipoprotein 46 mg/dL; Protein, Total 6.9 g/dL (6.4-8.2); Sodium Level 140 mmol/L (136-145); Triglycerides 296 mg/dL; Very Low Density Lipoprotein 59 mg/dL (5-40)
[2021-05-07 10:37] LABS: Hemoglobin A1c 6.8 % (3.8-5.6)
== END ==
PROVIDERS: PCP Student in an Organized Health Care Education/Training Program; Referring Provider Student in an Organized Health Care Education/Training Program; Visit Provider Student in an Organized Health Care Education/Training Program
DX: E11.9 Type 2 diabetes mellitus without complications (principal)
CPT/HCPCS: 36415; 80053; 80061; 83036; 85027

== ENCOUNTER → 2021-05-29 | Outpatient (CLI) | payer OTHER, SELFPAY ==
[2020-08-31 10:03] VITALS: BMI 32.5
== END | disposition home or self-care (01) ==
LOC: LABSPEC 11:13
PROVIDERS: PCP Student in an Organized Health Care Education/Training Program; Referring Provider Physician Assistant; Visit Provider Physician Assistant
DX: U07.1 COVID-19 (principal)
CPT/HCPCS: 87635; U0005; U0003

== ENCOUNTER → 2021-07-06 09:04 | Outpatient (CLI) | payer OTHER, SELFPAY ==
[2020-08-31 10:03] VITALS: BMI 32.5
[2020-12-27 13:47] VITALS: BMI 32.4
--- NOTE | 2021-07-06 09:04 | BI_ITS ---
MAMMOGRAPHY - BILATERAL DIAGNOSTIC REASON FOR EXAM: Female, 61 years old. Prior right lumpectomy with radiation. PERTINENT HISTORY: Personal history of breast cancer. TECHNIQUE: Digital bilateral breast haritha (3D mammographic acquisition) in the CC and MLO projections. 2-D mediolateral oblique (MLO) and craniocaudad (CC) views of both breasts were obtained. CAD: Full Field Digital Mammography with Computer Added Detection was performed. COMPARISON: Comparison is made with prior examination of 07/05/2020. FINDINGS: Breast Composition: The breasts are almost entirely fatty. There are no dominant masses or suspicious calcifications. Since prior examination, the patient underwent a lumpectomy in the upper lateral aspect of the right breast. Postoperative changes are seen at the lumpectomy site but overall line skin thickening. Surgical clips are seen in the right axillary region. No other significant abnormalities are identified. BI/DIAG MAMM W/CAD, BILAT IMPRESSION: Status post right lumpectomy with postoperative changes.. One year follow-up recommended. (A) ASSESSMENT CATEGORY: BIRADS Category 2: Benign. A letter regarding these results will be sent to the patient by the facility within 30 days. Approximately 10% of breast cancers are not detected by mammography. A normal mammogram should not delay biopsy of a clinically suspicious abnormality. Electronically Signed: Destin Marquez MD at 11:03 EST , Service support ,
== END ==
PROVIDERS: PCP Student in an Organized Health Care Education/Training Program; Referring Provider Student in an Organized Health Care Education/Training Program; Visit Provider Student in an Organized Health Care Education/Training Program
DX: C50.411 Malignant neoplasm of upper-outer quadrant of right female breast (principal); Z12.31 Encounter for screening mammogram for malignant neoplasm of breast; Z17.0 Estrogen receptor positive status [ER+]
CPT/HCPCS: 77062; 77066; G0279

== ENCOUNTER → 2022-05-07 | Outpatient (CLI) | payer OTHER, SELFPAY ==
[2020-08-31 10:03] VITALS: BMI 32.5
[2022-05-07 09:59] LABS: Hematocrit 41.9 % (37-47); Hemoglobin 13.6 g/dL (12.0-15.0); Mean Corp Hgb Conc 32.5 g/dL (32-36); Mean Corpuscular Hgb 29.8 pg (27.0-32.0); Mean Corpuscular Volume 91.7 fL (81-99); Mean Platelet Vol. 10.6 fl (6.2-12.0); Platelet Count 198 K/mm3 (150-450); RBC Distribution Width CV 12.6 % (11.6-14.6); RBC Distribution Width SD 42.2 fl (35.1-43.9); Red Blood Count 4.57 M/mm3 (4.2-5.4); White Blood Count 6.3 K/mm3 (4.4-11.0)
[2022-05-07 10:15] LABS: Hemoglobin A1c 6.9 % (3.8-5.6)
[2022-05-07 10:24] LABS: Microalbumin,Random Urine 9.4 mg/L (NO RANGE EST.)
[2022-05-07 10:47] LABS: ALB/GLOB Ratio 0.9 RATIO (0.9-2.4); AST(SGOT) 23 U/L (15-37); Alanine Aminotransfer ALT/SGPT 28 U/L (13-56); Albumin, Serum 3.2 g/dL (3.2-5.0); Alkaline Phosphatase 66 U/L (45-117); Anion Gap 10 (5-15); BUN 15 mg/dL (7-18); BUN/Creat Ratio 23.4 RATIO (10-20); Calcium,Total 9.1 mg/dL (8.5-10.1); Chloride 109 mmol/L (98-107); Cholesterol 136 mg/dL (200); Creatinine, Serum 0.64 mg/dL (0.55-1.02); EST Glomerular Filtration Rate 99 mL/min (>60); Est Glom Filt Rate - Afr Amer 120 mL/min (>60); Globulin 3.5 g/dL (2.2-4.2); Glucose 126 mg/dL (74-106); High Density Lipoprotein 46 mg/dL; Potassium 3.8 mmol/L (3.5-5.1); Protein, Total 6.7 g/dL (6.4-8.2); Sodium Level 143 mmol/L (136-145); Thyroid Stim Hormone (TSH) 2.17 uIU/mL (0.358-3.74); Triglycerides 203 mg/dL; Very Low Density Lipoprotein 41 mg/dL (5-40)
== END | disposition home or self-care (01) ==
LOC: MTLAB 07:52
PROVIDERS: PCP Student in an Organized Health Care Education/Training Program; Referring Provider Student in an Organized Health Care Education/Training Program; Visit Provider Student in an Organized Health Care Education/Training Program
DX: E11.9 Type 2 diabetes mellitus without complications (principal)
CPT/HCPCS: 36415; 80053; 80061; 82043; 83036; 84443; 85027

== ENCOUNTER 2022-07-08 09:54 | Outpatient (CLI) | payer OTHER, SELFPAY ==
[2020-08-31 10:03] VITALS: BMI 32.5
--- NOTE | 2022-07-08 09:56 | BI_ITS ---
MAMMOGRAPHY - BILATERAL SCREENING REASON FOR EXAM: Female, 62 years old. Routine annual screening examination. PERTINENT HISTORY: Personal history of breast cancer status post lumpectomy and radiation. Maternal aunt with breast cancer. TECHNIQUE: Digital bilateral breast kuldip (3D mammographic acquisition) in the CC and MLO projections. 2-D mediolateral oblique (MLO) and craniocaudad (CC) views of both breasts were obtained. CAD: Full Field Digital Mammography with Computer Added Detection was performed. COMPARISON: Bilateral mammogram from 07/06/2021, 07/05/2020. Right breast diagnostic mammogram from 07/28/2020. Right breast ultrasound from 07/11/2020. FINDINGS: Breast Composition: There are scattered areas of fibroglandular density. There are no dominant masses or suspicious calcifications. There are stable right breast lumpectomy postoperative changes and postoperative scar. There are stable surgical clips in the right axilla. No other significant abnormalities are identified. There has been no significant change since the prior study. BI/SCRN MAMM (CAD)W/KULDIP BILAT IMPRESSION: Stable bilateral screening mammogram. Yearly follow-up mammogram recommended. (A) ASSESSMENT CATEGORY: BIRADS Category 2: Benign. A letter regarding these results will be sent to the patient by the facility within 30 days. Approximately 10% of breast cancers are not detected by mammography. A normal mammogram should not delay biopsy of a clinically suspicious abnormality. Electronically Signed: Alfonzo Carlos, at 8:38 EST ,
== END 2022-07-08 23:59 | disposition home or self-care (01) ==
LOC: OPBI 09:55
PROVIDERS: PCP Student in an Organized Health Care Education/Training Program; Visit Provider Student in an Organized Health Care Education/Training Program
DX: Z12.31 Encounter for screening mammogram for malignant neoplasm of breast (principal); C50.411 Malignant neoplasm of upper-outer quadrant of right female breast; Z17.0 Estrogen receptor positive status [ER+]
CPT/HCPCS: 77063; 77067

== ENCOUNTER → 2023-07-03 | Outpatient (CLI) | payer MEDICARE, SELFPAY ==
[2020-08-31 10:03] VITALS: BMI 32.5
[2023-07-03 09:57] LABS: Absolute Lymphocyte Count 1.84 X10^3/uL (0.83-4.51); Absolute Neutrophil Count 3.9 X10^3/uL (2.0-7.7); Basophil# 0.02 X10^3/uL; Basophil% 0.3 % (0-1); Eosinophil# 0.65 X10^3/uL; Eosinophils% 9.5 % (0-5); Hematocrit 41.6 % (37-47); Hemoglobin 13.2 g/dL (12.0-15.0); Lymphocyte # 1.84 X10^3/ul (0.83-4.51); Mean Corp Hgb Conc 31.7 g/dL (32-36); Mean Corpuscular Hgb 29.3 pg (27.0-32.0); Mean Corpuscular Volume 92.2 fL (81-99); Mean Platelet Vol. 11.1 fl (6.2-12.0); Monocyte# 0.37 X10^3/uL; Monocyte% 5.4 % (0-10); NRBC Flagged by Analyzer 0 % (0-5); Neutrophil # 3.92 X10^3/uL (2.7-7.7); Neutrophil % 57.7 % (47-70); Platelet Count 205 K/mm3 (150-450); RBC Distribution Width CV 12.3 % (11.6-14.6); RBC Distribution Width SD 41.5 fl (35.1-43.9); Red Blood Count 4.51 M/mm3 (4.2-5.4); White Blood Count 6.8 K/mm3 (4.4-11.0)
[2023-07-03 10:11] LABS: Microalbumin,Random Urine 21.5 mg/L (NO RANGE EST.); Microalbumin:Creatinine Ratio 13.2 mg/g CRE (<30 mg/g CRE)
[2023-07-03 10:11] LABS: ALB/GLOB Ratio 0.9 RATIO (0.9-2.4); AST(SGOT) 29 U/L (15-37); Alanine Aminotransfer ALT/SGPT 35 U/L (13-56); Albumin, Serum 3.1 g/dL (3.2-5.0); Alkaline Phosphatase 59 U/L (45-117); Anion Gap 9 (5-15); BUN 14 mg/dL (7-18); BUN/Creat Ratio 21.4 RATIO (10-20); Calcium,Total 8.6 mg/dL (8.5-10.1); Chloride 107 mmol/L (98-107); Cholesterol 122 mg/dL (200); Creatinine, Serum 0.66 mg/dL (0.55-1.02); EST Glomerular Filtration Rate 96 mL/min (>60); Est Glom Filt Rate - Afr Amer 117 mL/min (>60); Globulin 3.6 g/dL (2.2-4.2); Glucose 164 mg/dL (74-106); High Density Lipoprotein 45 mg/dL; LDH 156 U/L (84-246); Potassium 3.9 mmol/L (3.5-5.1); Protein, Total 6.7 g/dL (6.4-8.2); Sodium Level 142 mmol/L (136-145); Thyroid Stim Hormone (TSH) 1.36 uIU/mL (0.358-3.74); Triglycerides 219 mg/dL; Very Low Density Lipoprotein 44 mg/dL (5-40)
[2023-07-03 16:14] LABS: Xtra Tube EP Lab EXTRA TUBE
== END | disposition home or self-care (01) ==
LOC: MTLAB 08:03
PROVIDERS: Internal Medicine Medical Oncology; PCP Student in an Organized Health Care Education/Training Program; Referring Provider Student in an Organized Health Care Education/Training Program; Visit Provider Student in an Organized Health Care Education/Training Program
DX: E11.59 Type 2 diabetes mellitus with other circulatory complications (principal); Z13.6 Encounter for screening for cardiovascular disorders
CPT/HCPCS: 36415; 80053; 80061; 82043; 82570; 83615; 84443; 85025

== ENCOUNTER → 2023-07-14 | Outpatient (CLI) | payer MEDICARE, SELFPAY ==
[2020-08-31 10:03] VITALS: BMI 32.5
--- NOTE | 2023-07-14 09:28 | BI_ITS ---
MAMMOGRAPHY - BILATERAL SCREENING REASON FOR EXAM: Female, 63 years old. Routine annual screening examination. PERTINENT HISTORY: Personal history of breast cancer. Prior right lumpectomy. Aunt with breast cancer. TECHNIQUE: Digital bilateral breast kuldip (3D mammographic acquisition) in the CC and MLO projections. 2-D mediolateral oblique (MLO) and craniocaudad (CC) views of both breasts were obtained. CAD: Full Field Digital Mammography with Computer Added Detection was performed. COMPARISON: Comparison is made with prior study July 08, 2022 and July 06, 2021. FINDINGS: Breast Composition: There are scattered areas of fibroglandular density. There are no dominant masses or suspicious calcifications. Once again, the patient is status post lumpectomy in the inferior lateral aspect of the right breast. Surgical clips are seen in the right axilla. No other significant abnormalities are identified. There has been no significant change since the prior study. BI/SCRN MAMM (CAD)W/KULDIP BILAT IMPRESSION: Stable bilateral screening mammogram. Yearly follow-up mammogram recommended. (A) ASSESSMENT CATEGORY: BIRADS Category 2: Benign. A letter regarding these results will be sent to the patient by the facility within 30 days. Approximately 10% of breast cancers are not detected by mammography. A normal mammogram should not delay biopsy of a clinically suspicious abnormality. [id number] Electronically Signed: Destin Marquez MD at 12:25 EST ,
== END | disposition home or self-care (01) ==
LOC: OPBI 09:27
PROVIDERS: PCP Student in an Organized Health Care Education/Training Program; Referring Provider Student in an Organized Health Care Education/Training Program; Visit Provider Student in an Organized Health Care Education/Training Program
DX: Z12.31 Encounter for screening mammogram for malignant neoplasm of breast (principal); C50.911 Malignant neoplasm of unspecified site of right female breast; Z80.3 Family history of malignant neoplasm of breast
CPT/HCPCS: 77063; 77067

== ENCOUNTER → 2024-02-23 | Outpatient (CLI) | payer MEDICARE, SELFPAY ==
[2020-08-31 10:03] VITALS: BMI 32.5
[2024-02-26 23:06] LABS: HPV Reflexed? NOT INDICATED
== END | disposition home or self-care (01) ==
LOC: LABSPEC 13:21
PROVIDERS: PCP Student in an Organized Health Care Education/Training Program; Referring Provider Obstetrics & Gynecology; Visit Provider Obstetrics & Gynecology
DX: Z12.4 Encounter for screening for malignant neoplasm of cervix (principal); Z79.810 Long term (current) use of selective estrogen receptor modulators (SERMs)
CPT/HCPCS: 88175; G0145

== ENCOUNTER → 2024-07-16 | Outpatient (CLI) | payer MEDICARE, SELFPAY ==
[2020-08-31 10:03] VITALS: BMI 32.5
--- NOTE | 2024-07-16 11:54 | BI_ITS ---
MAMMOGRAPHY - BILATERAL SCREENING REASON FOR EXAM: Female, 64 years old. Routine annual screening examination. PERTINENT HISTORY: Personal history of breast cancer. Prior right lumpectomy. Prior right ultrasound-guided breast biopsy. Aunt with breast cancer. TECHNIQUE: Digital bilateral breast kuldip (3D mammographic acquisition) in the CC and MLO projections. 2-D mediolateral oblique (MLO) and craniocaudad (CC) views of both breasts were obtained. CAD: Full Field Digital Mammography with Computer Added Detection was performed. COMPARISON: Comparison is made with prior study July 14, 2023 and July 08, 2022. FINDINGS: Breast Composition: There are scattered areas of fibroglandular density. There are no dominant masses or suspicious calcifications. Once again, the patient is status post lumpectomy in the inferior lateral aspect of the right breast. Postsurgical changes are seen. Surgical clips are seen in the right axilla. No other significant abnormalities are identified. There has been no significant change since the prior study. BI/SCRN MAMM (CAD)W/KULDIP BILAT IMPRESSION: Stable bilateral screening mammogram. Yearly follow-up mammogram recommended. (A) ASSESSMENT CATEGORY: BIRADS Category 2: Benign. A letter regarding these results will be sent to the patient by the facility within 30 days. Approximately 10% of breast cancers are not detected by mammography. A normal mammogram should not delay biopsy of a clinically suspicious abnormality. [id number] Electronically Signed: Destin Marquez MD at 9:07 EST ,
== END | disposition home or self-care (01) ==
LOC: OPBI 11:53
PROVIDERS: PCP Student in an Organized Health Care Education/Training Program; Referring Provider Nurse Practitioner Family; Visit Provider Nurse Practitioner Family
DX: Z12.31 Encounter for screening mammogram for malignant neoplasm of breast (principal); Z85.3 Personal history of malignant neoplasm of breast; Z80.3 Family history of malignant neoplasm of breast
CPT/HCPCS: 77063; 77067

== ENCOUNTER → 2024-07-20 | Outpatient (CLI) | payer MEDICARE, SELFPAY ==
[2020-08-31 10:03] VITALS: BMI 32.5
[2024-07-20 10:22] LABS: Cholesterol 148 mg/dL (200); High Density Lipoprotein 48 mg/dL; Triglycerides 281 mg/dL; Very Low Density Lipoprotein 56 mg/dL (5-40)
== END | disposition home or self-care (01) ==
LOC: PAVLAB 09:47
PROVIDERS: PCP Nurse Practitioner Family; Referring Provider Nurse Practitioner Family; Visit Provider Nurse Practitioner Family
DX: I10 Essential (primary) hypertension (principal); E11.9 Type 2 diabetes mellitus without complications; E78.5 Hyperlipidemia, unspecified
CPT/HCPCS: 36415; 80061

== ENCOUNTER → 2025-01-05 | Outpatient (CLI) | payer MEDICARE, SELFPAY ==
[2020-08-31 10:03] VITALS: BMI 32.5
[2025-01-05 13:42] LABS: Absolute Lymphocyte Count 2.21 X10^3/uL (0.83-4.51); Absolute Neutrophil Count 3.8 X10^3/uL (2.0-7.7); Basophil# 0.01 X10^3/uL; Basophil% 0.1 % (0-1); Eosinophil# 0.63 X10^3/uL; Hematocrit 35.9 % (37-47); Hemoglobin 10.9 g/dL (12.0-15.0); Lymphocyte # 2.21 X10^3/ul (0.83-4.51); Lymphocyte % 31.4 % (19-41); Mean Corp Hgb Conc 30.4 g/dL (32-36); Mean Corpuscular Hgb 24.8 pg (27.0-32.0); Mean Corpuscular Volume 81.6 fL (81-99); Mean Platelet Vol. 10.4 fl (6.2-12.0); Monocyte# 0.39 X10^3/uL; Monocyte% 5.5 % (0-10); NRBC Flagged by Analyzer 0 % (0-5); Neutrophil # 3.77 X10^3/uL (2.7-7.7); Neutrophil % 53.7 % (47-70); Platelet Count 263 K/mm3 (150-450); RBC Distribution Width CV 14.4 % (11.6-14.6); RBC Distribution Width SD 42.4 fl (35.1-43.9)
[2025-01-05 14:22] LABS: ALB/GLOB Ratio 1.3 RATIO (0.9-2.4); AST(SGOT) 31 U/L (<=31); Alanine Aminotransfer ALT/SGPT 19 U/L (<=34); Albumin, Serum 3.9 g/dL (3.4-4.8); Alkaline Phosphatase 74 U/L (35-104); Anion Gap 13 (5-15); BUN 16 mg/dL (4-19); BUN/Creat Ratio 26.2 RATIO (10-20); Calcium,Total 9.2 mg/dL (7.6-11.0); Carbon Dioxide 23.1 mmol/L (21.0-32.0); Chloride 104 mmol/L (98-108); Creatinine, Serum 0.61 mg/dL (0.70-1.20); EST Glomerular Filtration Rate 98 (>60); Glucose 180 mg/dL (70-99); Protein, Total 6.9 g/dL (5.9-8.4); Sodium Level 139 mmol/L (133-145); Total Bilirubin 0.25 mg/dL (0.00-1.30)
[2025-01-05 14:57] LABS: LDH 181 U/L (84-246)
== END | disposition home or self-care (01) ==
LOC: LAB 13:02
PROVIDERS: PCP Nurse Practitioner Family; Referring Provider Internal Medicine Medical Oncology; Visit Provider Internal Medicine Medical Oncology
DX: C50.411 Malignant neoplasm of upper-outer quadrant of right female breast (principal); C50.911 Malignant neoplasm of unspecified site of right female breast; Z17.0 Estrogen receptor positive status [ER+]
CPT/HCPCS: 36415; 80053; 83615; 85025

== ENCOUNTER → 2025-02-09 | Outpatient (CLI) | payer MEDICARE, SELFPAY ==
[2020-08-31 10:03] VITALS: BMI 32.5
[2025-02-09 13:03] LABS: Ferritin 35 ng/mL (22-378); Iron 167 ug/dL (50-170)
[2025-02-10 16:10] LABS: Endomysial Antibody IgA Negative (Negative); Immunoglobulin A 176 mg/dL (87-352); t-Transglutaminase IgA <2 U/mL (0-3)
== END | disposition home or self-care (01) ==
LOC: MTLAB 10:35
PROVIDERS: PCP Nurse Practitioner Family; Referring Provider Internal Medicine Gastroenterology; Visit Provider Internal Medicine Gastroenterology
DX: D50.9 Iron deficiency anemia, unspecified (principal)
CPT/HCPCS: 36415; 82728; 82784; 83516; 83540; 86255

== ENCOUNTER → 2025-07-18 | Outpatient (CLI) | payer MEDICARE, SELFPAY ==
[2020-08-31 10:03] VITALS: BMI 32.5
--- NOTE | 2025-07-18 10:30 | BI_ITS ---
EXAM: SCRN MAMM (CAD)W/KULDIP BILAT DATE: 07/18/2025 CLINICAL HISTORY: F, Age 65 y/o , ANNUAL SCREENING, H/O BREAST CANCER TECHNIQUE: Procedure Code: [id number] Modality: MG Procedure: SCRN MAMM (CAD)W/KULDIP BILAT COMPARISON: Prior exam(s) dated 07/16/2024, 07/14/2023, and 07/08/2022. FINDINGS: TISSUE DENSITY: There are scattered areas of fibroglandular density. Bilateral Breast Mammographic Findings: There is a is a focal area of architectural distortion in the lateral, middle 3rd aspect of the right breast covering an area measuring approximately 1 cm. Further workup is indicated. Benign-appearing round microcalcifications are seen in the right breast. Benign-appearing round microcalcifications are seen in the left breast. No suspicious masses, suspicious cluster of microcalcifications, architectural distortion or secondary sign of malignancy is identified in the left breast. BI/SCRN MAMM (CAD)W/KULDIP BILAT IMPRESSION: There is a is a focal area of architectural distortion in the lateral, middle 3 rd aspect of the right breast covering an area measuring approximately 1 cm. Further workup is indicated. Patient should return for an LM view of the right breast as well as spot compre ssion CC and spot compression MLO view of the right breast area of architectural distortion. An ultrasound will also li marianela be needed. OVERALL FINAL ASSESSMENT BI-RADS 0: INCOMPLETE - NEED ADDITIONAL IMAGING EVALUATION. RECOMMENDATION: Additional Views obtained/call backs Additional Recommendation none A letter with findings and recommendations will be mailed to the patient. Reading Location: [id number]
== END | disposition home or self-care (01) ==
LOC: OPBI 10:30
PROVIDERS: PCP Nurse Practitioner Family; Referring Provider Student in an Organized Health Care Education/Training Program; Visit Provider Student in an Organized Health Care Education/Training Program
DX: Z12.31 Encounter for screening mammogram for malignant neoplasm of breast (principal); C50.411 Malignant neoplasm of upper-outer quadrant of right female breast; Z17.0 Estrogen receptor positive status [ER+]
CPT/HCPCS: 77063; 77067

== ENCOUNTER → 2025-07-27 | Outpatient (CLI) | payer MEDICARE, SELFPAY ==
[2020-08-31 10:03] VITALS: BMI 32.5
--- NOTE | 2025-07-27 09:31 | BI_ITS ---
EXAM: DIAG MAMM W/CAD, UNILAT 07/27/2025 CLINICAL HISTORY: F, Age 65 y/o , ABN MAMM. Personal history of breast cancer. Prior right lumpectomy. TECHNIQUE: Procedure Code: [id number] Modality: MG Procedure: DIAG MAMM W/CAD, UNILAT.. 90 degree lateral and compression spot views of the right breast were obtained. COMPARISON: Prior exam(s) dated July 18, 2025.. FINDINGS: TISSUE DENSITY: There are scattered areas of fibroglandular density. Bilateral Breast Mammographic Findings: The previously seen abnormality represents the site of the prior lumpectomy and postoperative scarring. Surgical clips are seen in the right axilla. BI/DIAG MAMM W/CAD, UNILAT IMPRESSION: Postoperative changes at the site of the lumpectomy. OVERALL FINAL ASSESSMENT BI-RADS 2: BENIGN RECOMMENDATION: Routine annual follow-up in 1 Year Additional Recommendation none A letter with findings and recommendations will be mailed to the patient. Reading Location: [place] [id number]
== END | disposition home or self-care (01) ==
PROVIDERS: PCP Nurse Practitioner Family; Referring Provider Student in an Organized Health Care Education/Training Program; Visit Provider Student in an Organized Health Care Education/Training Program
DX: R92.8 Other abnormal and inconclusive findings on diagnostic imaging of breast (principal)
CPT/HCPCS: 77061; 77065; G0279